=== PATIENT | female | born 1955 | race Caucasian/White ===

== ENCOUNTER 2019-01-01 08:57 | Emergency (ER) | payer BC ==
[~2019-01-01] VITALS: Ht 157.5 cm; Wt 86.2 kg
--- NOTE | 2019-01-01 09:00 | NUR ---
Note susanaone in EDM - 01/01/19 at 0918 by ENMA AAOX3, BIBRA 860 C/O LEFT ANKLE PAIN, +DEFORMITY S/P TRIPPED AND FELL -KO. RR IS EVEN AND UNLABORED WITH NAD NOTED. SKIN IS WARM AND DRY. [facility] WNL. AWAITING FOR PRINCESS.
--- NOTE | 2019-01-01 09:00 | NUR ---
AAOX3, BIBRA 860 C/O RIGHT ANKLE PAIN, +DEFORMITY S/P TRIPPED AND FELL -KO. RR IS EVEN AND UNLABORED WITH NAD NOTED. SKIN IS WARM AND DRY. [facility] WNL. AWAITING MD FOR EVAL.
--- NOTE | 2019-01-01 09:20 | NUR ---
PATIENT HAD A BM MOVEMENT. PIV INSERTED ON LEFT HAND G20.
[2019-01-01] MEDS ORDERED: IV NS 0.9% 500 ML IV ONE (09:30)
[2019-01-01] MEDS ORDERED: ONDANSETRON HCL/PF - ER 4 MG/2 ML VIAL IV ONE (09:30)
[2019-01-01] MEDS ORDERED: HYDROMORPHONE INJ 0.5 MG/0.5 ML SYRINGE IV ONE (09:30)
[2019-01-01] MEDS ORDERED: ONDANSETRON HCL/PF 4 MG/2 ML VIAL ONE (09:33)
[2019-01-01] MEDS ORDERED: HYDROMORPHONE INJ 0.5 MG/0.5 ML SYRINGE ONE (09:33)
--- NOTE | 2019-01-01 10:03 | NUR ---
[employer] SUSANNE
[2019-01-01] MEDS ORDERED: LEVO175T7 PO (10:52)
[2019-01-01] MEDS ORDERED: PROPOFOL 20 ML IV ONE (11:07)
[2019-01-01] MEDS ORDERED: PROPOFOL 200 MG/20 ML VIAL IV ONE (11:30)
[2019-01-01 11:51] LABS: BASOPHILS % (AUTO) 0.3 % (0.0-2.0); EOSINOPHILS % (AUTO) 0.5 % (0.0-6.0); HEMATOCRIT 41 % (33-45); HEMOGLOBIN 13.5 g/dL (11.5-14.8); LYMPHOCYTES # (AUTO) 1.1 /CMM (0.8-4.8); LYMPHOCYTES % (AUTO) 12.4 % (20.0-44.0); MEAN CORPUSCULAR HGB CONC 33 g/dl (31.0-36.0); MEAN CORPUSCULAR VOLUME 91 fL (82-100); MONOCYTES # (AUTO) 0.5 /CMM (0.1-1.30); MONOCYTES % (AUTO) 5.4 % (2.0-12.0); NEUTROPHILS # (AUTO) 7.1 /CMM (1.8-8.9); NEUTROPHILS % (AUTO) 81.4 % (43.0-81.0); PLATELET COUNT (AUTO) 240 /CMM (150-450); RED BLOOD CELL COUNT(AUTO) 4.47 MIL/uL (4.0-5.2); WHITE BLOOD COUNT (AUTO) 8.7 K/uL (4.3-11.0)
[2019-01-01 12:03] LABS: CREATININE 0.6 mg/dL (0.6-1.3)
--- NOTE | 2019-01-01 12:03 | NUR ---
CLSOED REDUCTION ON RIGHT ANKLE PROCEDURE COMPLETED BY DR. MCCRARY. DR. MCCRARY GAVE A TOTAL OG 90MG OF PROPOFOL. PATIENT TOLERATED PROCEDURE WELL. RIGHT LOWER LEG SPLINT DRY AND INTACT.
--- NOTE | 2019-01-01 12:24 | NUR ---
PANEL ON-CALL PAGED
--- NOTE | 2019-01-01 12:40 | NUR ---
PAGING PANEL ON-CALL
--- NOTE | 2019-01-01 13:17 | NUR ---
CALLED [facility], PER KAVYA THEY ARE SATURATED AT THE MOMENT.
--- NOTE | 2019-01-01 14:26 | NUR ---
Patient discharged to home. Discharge instructions provided and patient verbalized understanding. PIV removed. RLE splint intact. Prescription given and explained to the patient. Patient left in stable condition.
[2019-01-01 14:31] VITALS: BP 147/57
== END 2019-01-01 15:00 | disposition other institution (70) ==
LOC: ER 08:59
DX: S82.851A Displaced trimalleolar fracture of right lower leg, initial encounter for closed fracture (principal); E03.9 Hypothyroidism, unspecified; W01.0XXA Fall on same level from slipping, tripping and stumbling without subsequent striking against object, initial encounter; Y93.89 Activity, other specified; Y92.89 Other specified places as the place of occurrence of the external cause; Y99.8 Other external cause status
CPT/HCPCS: 27840; 36415; 71045; 73560; 73600; 73610; 80048; 85025; 85730; 93005; 96374; 96375; 99152; 99285; A4606; J2405 ×2; J2704; J7030; J7040; G0500

== ENCOUNTER 2023-03-09 22:05 | Emergency (ER) | payer MEDICARE, BC ==
[~2023-03-09] VITALS: Ht 154.9 cm; Wt 77.1 kg
[~2023-03-09 22:05] MED LIST: LEVO175T7 PO
[2023-03-09 23:25] VITALS: BP 139/91
--- NOTE | 2023-03-09 23:35 | NUR ---
Patient discharged to home in stable condition. Written and verbal after care instructions given. Patient verbalizes understanding of instruction. Pt ambulatory with a steady gait
== END 2023-03-09 23:36 | disposition home or self-care (01) ==
LOC: ER 22:09
DX: S61.216A Laceration without foreign body of right little finger without damage to nail, initial encounter (principal); E03.9 Hypothyroidism, unspecified; Z79.899 Other long term (current) drug therapy; W45.8XXA Other foreign body or object entering through skin, initial encounter; Y93.89 Activity, other specified; Y92.89 Other specified places as the place of occurrence of the external cause; Y99.8 Other external cause status